=== PATIENT | female | born 1980 | race Caucasian/White ===

== ENCOUNTER → 2016-07-17 | Outpatient (REF) | payer BC | LOC: M SFHCWAGY 11:03 | PROVIDERS: ATTEND Nurse Practitioner Women's Health | DX: Z12.4 Encounter for screening for malignant neoplasm of cervix (principal) ==

== ENCOUNTER → 2016-10-08 | Outpatient (CLI) | payer BC ==
[2016-10-08 14:22] LABS: BASO % 0.2 % (0.0-1.0); EOS % 0.5 % (0.0-3.0); LARGE UNSTAINED CELL # 0.1 K/mm3 (0.0-0.4); LARGE UNSTAINED CELL % 1.2 % (0.0-4.0); LYMPH # 3.1 K/mm3 (1.5-4.5); LYMPH % 32.1 % (24.0-44.0); MEAN CORPUSCULAR HGB CONC 34.9 g/dl (32.0-36.5); MEAN CORPUSCULAR VOLUME 86.2 fl (80.0-96.0); MONO # 0.3 K/mm3 (0.0-0.8); MONO % 3.3 % (0.0-5.0); NEUTROPHILS # 5.8 K/mm3 (1.8-7.7); NEUTROPHILS % 62.7 % (36.0-66.0); PLATELET COUNT, AUTOMATED 324 k/mm3 (150-450); RED CELL DISTRIBUTION WIDTH 12.4 % (11.5-14.5); WHITE BLOOD COUNT 9.3 K/mm3 (4.0-10.0)
[2016-10-08 15:06] LABS: HBsAg Prenatal NEGATIVE (NEGATIVE)
== END ==
LOC: M LAB 13:31
PROVIDERS: ATTEND Advanced Practice Midwife
DX: Z34.81 Encounter for supervision of other normal pregnancy, first trimester (principal)

== ENCOUNTER → 2016-11-06 | Outpatient (REF) | payer BC | LOC: M LAB REF 13:04 | PROVIDERS: ATTEND Advanced Practice Midwife | DX: Z34.82 Encounter for supervision of other normal pregnancy, second trimester (principal) ==

== ENCOUNTER → 2016-12-05 | Outpatient (REF) | payer BC ==
[~2016-12-05] MED LIST: PRENTAB9 PO; PRIL20CA9 PO
== END ==
LOC: M LAB REF 13:05
PROVIDERS: ATTEND Obstetrics & Gynecology
DX: Z34.82 Encounter for supervision of other normal pregnancy, second trimester (principal)

== ENCOUNTER 2017-02-21 10:09 | Outpatient (CLI) | payer BC ==
[2017-02-21] VITALS (15 sets, daily range): BP systolic 131–178; BP diastolic 87–114
[~2017-02-21] VITALS: Ht 170.2 cm; Wt 84.8 kg
[2017-02-21] MEDS ORDERED: PRENTAB9 PO (10:36)
[2017-02-21] MEDS ORDERED: PRIL20CA9 PO (10:36)
[2017-02-21 13:22] LABS: ALT/SGPT 295 U/L (12-78); AST/SGOT 214 U/L (15-37); BILIRUBIN,TOTAL 1.1 MG/DL (0.2-1.0); CREATININE FOR GFR 0.52 MG/DL (0.55-1.02); GLOMERULAR FILTRATION RATE > 60.0 (>60); MEAN CORPUSCULAR HEMOGLOBIN 30.8 pg (27.0-33.0); RED CELL DISTRIBUTION WIDTH 13.7 % (11.5-14.5); URIC ACID 4.5 MG/DL (2.6-6.0); WHITE BLOOD COUNT 10.8 K/mm3 (4.0-10.0)
[2017-02-21] MEDS ORDERED: MAG Sulf (OBGYN) 20GM/500ML 20,000 MG in APPROPRIATE DILUENT 1 EA IV SCH (13:57)
[2017-02-21] MEDS ORDERED: LABETALOL HCL 100 MG/20 ML VIAL IV ONE (14:00)
[2017-02-21] MEDS ORDERED: CALCIUM GLUCONATE 1,000 MG in D5W MINI-BAG PLUS 100 ML IV PRN (14:00)
[2017-02-21] MEDS ORDERED: MAG Sulf (L&D) 4 GM/100 ML 4 GM in APPROPRIATE DILUENT 1 EA IV ONE (14:00)
[2017-02-21] MEDS ORDERED: BETAMETHASONE SOLUSPAN 6MG/ML INJ 5ML (J0702) IM SCH (14:00)
[2017-02-21 14:13] LABS: MEAN CORPUSCULAR HGB CONC 36.7 g/dl (32.0-36.5)
[2017-02-21] MEDS ORDERED: NIFEdipine 10 MG CAP PO ONE (15:15)
== END 2017-02-21 16:45 | disposition short-term general hospital (02) ==
LOC: M LDO 10:09
PROVIDERS: ATTEND Obstetrics & Gynecology
DX: O99.89 Other specified diseases and conditions complicating pregnancy, childbirth and the puerperium (principal); Z3A.28 28 weeks gestation of pregnancy; O14.23 HELLP syndrome (HELLP), third trimester; Z79.899 Other long term (current) drug therapy; Z88.0 Allergy status to penicillin; Z88.2 Allergy status to sulfonamides
CPT/HCPCS: 36415; 80307; 82247; 82565; 82570; 83615; 84156; 84450; 84460; 84550; 85027; 96365; 96372; 96375; J0702; J3475

== ENCOUNTER → 2018-03-04 | Outpatient (REF) | payer BC ==
[2018-03-06 14:39] LABS: HPV HYBRID CAPTURE II Positive (Negative)
== END ==
LOC: M LAB REF 13:27
DX: Z12.4 Encounter for screening for malignant neoplasm of cervix (principal)
CPT/HCPCS: G0123

== ENCOUNTER → 2018-04-07 | Outpatient (REF) | payer BC | LOC: M LAB REF 17:14 | DX: R87.612 Low grade squamous intraepithelial lesion on cytologic smear of cervix (LGSIL) (principal) | CPT/HCPCS: 88304 ==

== ENCOUNTER → 2018-12-09 | Outpatient (REF) | payer BC ==
[2018-12-12 00:07] LABS: HPV HYBRID CAPTURE II Negative (Negative)
== END ==
LOC: M LAB REF 18:15
PROVIDERS: ATTEND Specialist
DX: R87.612 Low grade squamous intraepithelial lesion on cytologic smear of cervix (LGSIL) (principal)
CPT/HCPCS: 87624; G0123

== ENCOUNTER → 2019-01-22 | Outpatient (CLI) | payer BC ==
--- NOTE | 2019-01-22 16:25 | REP ---
HISTORY: Chronic sinusitis. FINDINGS: Four views of the visualized paranasal sinuses were performed. There are no air-fluid levels. There is no lysis or sclerosis of the bony architecture surrounding the paranasal sinuses. There is no significant nasal septal deviation. IMPRESSION: Unremarkable paranasal sinuses. COMMENT: If evaluation of the paranasal sinus mucosa is of clinical concern then CT is more sensitive. Electronically Signed by Jim Benitez DO 01/22/2019 04:30 P
== END ==
LOC: M WUC 15:10
PROVIDERS: ATTEND Family Medicine
DX: J32.9 Chronic sinusitis, unspecified (principal)

== ENCOUNTER → 2019-02-11 | Outpatient (CLI) | payer BC ==
--- NOTE | 2019-02-11 16:51 | REP ---
Chest x-ray: Two views. History: Acute bronchitis. No comparison chest x-ray. Findings: There is a moderate dextroconvex thoracic curvature. The lungs are well inflated and clear. Pleural angles are sharp. Heart size is normal. Pulmonary vasculature is not increased. No other bony abnormality is seen. Impression: Thoracic scoliosis. Otherwise no active disease. Electronically Signed by Len Hernandez MD 02/11/2019 04:42 P
== END ==
LOC: M WUC 16:19
PROVIDERS: ATTEND Nurse Practitioner Family
DX: M41.34 Thoracogenic scoliosis, thoracic region (principal); J20.9 Acute bronchitis, unspecified

== ENCOUNTER → 2020-01-27 | Outpatient (REF) | payer BC ==
[2020-01-27 09:39] LABS: BASO # 0.1 10^3/uL (0.0-0.2); BASO % 0.6 % (0.0-1.0); EOS # 0.1 10^3/uL (0.0-0.5); EOS % 1.7 % (0.0-3.0); HEMATOCRIT 52.2 % (36.0-47.0); HEMOGLOBIN 17.5 g/dl (12.0-15.5); LYMPH # 3.3 10^3/uL (1.5-5.0); MEAN CORPUSCULAR HEMOGLOBIN 28.6 pg (27.0-33.0); MEAN CORPUSCULAR HGB CONC 33.5 g/dl (32.0-36.5); MEAN CORPUSCULAR VOLUME 85.4 fl (80.0-96.0); MONO # 0.4 10^3/uL (0.0-0.8); MONO % 5.7 % (0.0-5.0); NEUTROPHILS # 3.8 10^3/uL (1.5-8.5); NEUTROPHILS % 48.7 % (36.0-66.0); PLATELET COUNT, AUTOMATED 361 10^3/uL (150-450); RED BLOOD COUNT 6.11 10^6/uL (4.00-5.40); WHITE BLOOD COUNT 7.7 10^3/uL (4.0-10.0)
[2020-01-27 10:15] LABS: BLOOD UREA NITROGEN 13 MG/DL (7-18); CREATININE FOR GFR 0.92 MG/DL (0.55-1.30); GLUCOSE, FASTING 87 MG/DL (70-100)
[2020-01-27 10:16] LABS: ALBUMIN 4.6 GM/DL (3.2-5.2); ALT/SGPT 31 U/L (12-78); BILIRUBIN,TOTAL 0.7 MG/DL (0.2-1.0); CALCIUM LEVEL 9.4 MG/DL (8.5-10.1); CARBON DIOXIDE LEVEL 27 MEQ/L (21-32); CHLORIDE LEVEL 109 MEQ/L (98-107); CHOLESTEROL LEVEL 206 MG/DL (<200); CHOLESTEROL RISK RATIO 5.421 (<5); FREE T4 1.63 NG/DL (0.76-1.46); GLOMERULAR FILTRATION RATE > 60.0 (>60); HDL CHOLESTEROL 38 MG/DL (>40); LDL CHOLESTEROL 146 MG/DL (<100); NON-HDL-C 168 MG/DL; POTASSIUM SERUM 4.1 MEQ/L (3.5-5.1); SODIUM LEVEL 142 MEQ/L (136-145); TOTAL PROTEIN 7.7 GM/DL (6.4-8.2); TRIGLYCERIDES LEVEL 111 MG/DL (<150)
[2020-01-27 10:17] LABS: TOTAL 25(OH) VITAMIN D 30.5 NG/ML (30.0-100.0)
[2020-01-27 11:24] LABS: HEMOGLOBIN A1c 5.3 %
== END ==
LOC: M LAB REF 08:00
PROVIDERS: ATTEND Physician Assistant
DX: Z13.220 Encounter for screening for lipoid disorders (principal); Z13.29 Encounter for screening for other suspected endocrine disorder

== ENCOUNTER → 2020-02-03 | Outpatient (REF) | payer BC ==
[2020-02-03 19:04] LABS: HEMATOCRIT 47.8 % (36.0-47.0); HEMOGLOBIN 15.7 g/dl (12.0-15.5); MEAN CORPUSCULAR HEMOGLOBIN 28.8 pg (27.0-33.0); MEAN CORPUSCULAR HGB CONC 32.8 g/dl (32.0-36.5); MEAN CORPUSCULAR VOLUME 87.5 fl (80.0-96.0); PLATELET COUNT, AUTOMATED 363 10^3/uL (150-450); RED BLOOD COUNT 5.46 10^6/uL (4.00-5.40); WHITE BLOOD COUNT 8.2 10^3/uL (4.0-10.0)
== END ==
LOC: M LAB REF 17:40
PROVIDERS: ATTEND Physician Assistant
DX: D58.2 Other hemoglobinopathies (principal)

== ENCOUNTER → 2020-02-23 | Outpatient (CLI) | payer BC ==
--- NOTE | 2020-03-01 14:55 | REP ---
MAXILLOFACIAL CT STUDY WITHOUT CONTRAST HISTORY: Atypical facial pain. COMPARISON: Radiographs of the sinuses are from January 22, 2019. TECHNIQUE: Helical scanning is acquired. Three millimeter axial images were reformatted. Coronal multiplanar reformation images are generated. MAXILLOFACIAL CT FINDINGS: The left frontal sinus is clear. The right frontal is not developed. Ethmoid air cells are clear. Sphenoid aeration is normal. The mastoid sinuses are normal and symmetric. There are mucous retention cysts in each maxillary sinus, two on the right, the largest of which measures 2.2 cm in greatest diameter. There is a 2.2 cm mucous retention cyst in the left maxillary sinus inferiorly as well. No fluid is seen. The maxillary sinuses are otherwise clear. The left osteomeatal complex is widely patent. There is some mucosal thickening at the ostium of the right OMC. Nasal septum bows somewhat to the left without an observable beak. Nasal turbinate soft tissues are normal and symmetric. There is a small aerated maria c bullosa on each side. Nasal ethmoid recesses appear clear. No intraorbital abnormality is seen. The visualized intracranial structures are unremarkable. No bony destructive lesion. IMPRESSION: Mucous retention cysts are seen in each maxillary sinus. There is mucosa thickening of the ostium of the OMC on the right. Otherwise negative. MTDD
== END ==
LOC: M RAD 08:08
PROVIDERS: ATTEND Specialist
DX: J34.1 Cyst and mucocele of nose and nasal sinus (principal); G50.1 Atypical facial pain

== ENCOUNTER → 2020-12-23 | Outpatient (CLI) | payer BC | LOC: M WHC 08:47 | PROVIDERS: ATTEND Advanced Practice Midwife | DX: N63.20 Unspecified lump in the left breast, unspecified quadrant (principal); Z53.8 Procedure and treatment not carried out for other reasons ==

== ENCOUNTER → 2021-01-04 | Outpatient (CLI) | payer BC ==
--- NOTE | 2021-01-04 15:03 | REP ---
INDICATION: AJ DIAG MAMMO/N63.20 LEFT BREAST MASS. COMPARISON: None TECHNIQUE: Diagnostic bilateral digital mammography was carried out in the CC and MLO projections using both 2D and 3D modalities. Additionally, diagnostic digital magnified spot compression views of the left breast were obtained over the region of tenderness upper outer quadrant but near the 3 o'clock position. Ultrasonography over the clinical region of interest was also obtained using anatomical intelligence and shear wave elastography. FINDINGS: The breasts are symmetric in size and shape. Scattered dense heterogenous somewhat nodular fibroglandular elements are seen bilaterally to such a degree that the sensitivity of the mammogram in detecting cancer is decreased there are no masses. There is no internal architectural distortion. There are no suspicious calcifications. There is no skin thickening or nipple retraction. Diagnostic magnified spot compression views show no abnormalities. Diagnostic ultrasonography over the region of interest shows a solid hypoechoic 1.1 x 0.5 by 0.8 cm sized nodule. Shear wave elastography was performed on this showing I kPa values but less than 60. The Volpara volumetric breast density pattern is C. IMPRESSION: BIRADS/ACR category 4 left breast ultrasound findings as described above. Since the patient has clinical symptoms in this region ultrasound-guided biopsy is recommended. There is no mammographic correlate. This patient's Tyrer-Cuzick lifetime breast cancer risk assessment score is 9.4%. This mammogram was interpreted with the aid of an FDA-approved computer-aided detection system. The patient states she had a clinical breast exam in December 2020. The patient letter being requested is M4. RECOMMENDATION: As above <Electronically signed by Jim Benitez > 01/04/21 [id number]
== END ==
LOC: M WHC 12:54
PROVIDERS: ATTEND Advanced Practice Midwife
DX: N63.21 Unspecified lump in the left breast, upper outer quadrant (principal)
CPT/HCPCS: 76642; 77066; G0279

== ENCOUNTER → 2021-01-18 | Outpatient (CLI) | payer BC ==
[~2021-01-18] MED LIST changes: +LISI10TA22 PO; +MIRE1IUD IU
[2021-01-18 17:09] VITALS: BP 124/82
--- NOTE | 2021-01-24 20:23 | ROOPDOC ---
[facility] Report Of Operation Report of Operation DATE OF PROCEDURE: 01/18/21 DIAGNOSIS: left breast suspicious lesion PROCEDURE: ultrasound guided biopsy of the left breast suspicious lesion with clip placement SURGEON: Musa De Jesus BLOOD LOSS: minimal COMPLICATIONS: none Lidocaine 1% LOT [id number] Expiration 07/2024 Sodium Bicarbonate 8.4% LOT [id number] Expiration 07/2021 Hydromark clip LOT [id number] Expiration 09/2023 SHAPE: 3 Bx device: BARD [id number] x10 cm LOT [id number] Expiration 09/2023 Informed consent was obtained. The most common risk and possible complications including bleeding, hematoma, bruising, infection, injury to surrounding structures were explained to the patient and the patient expressed understanding. Patient was placed on the bed in the supine position. Appropriate time out was done stating patients name, date of , and the procedure to be performed. The left breast was prepped and draped in the usual fashion. The ultrasound was used to confirm the location of the lesion in the left breast at 4:00 4 centimeters from the nipple. Plain Lidocaine 1% and 8.4% sodium bicarbonate 10:1 mix was used to anesthetize the skin, the biopsy site and tissues along the anticipated biopsy tract. Small skin incision was made with blade number 11. BARD Marquee 14G cannula with introducer ([id number]) was inserted through the incision and advanced under the ultrasound guidance to position immediately adjacent to the lesion. Next, the introducer was removed and BARD Marquee 14G biopsy device was places in the cannula. Pre-biopsy imaging, and post-biopsy imaging were captured. Five good core biopsies were taken at various levels of the lesion. Specimen was placed in formaldehyde, labeled with appropriate biopsy site and patients name, and sent to pathology for evaluation. Next, the biopsy device was withdrawn and a clip introducer was inserted into the biopsy site via the cannula. SHAPE 3 Hydromark clip was deployed under sonographic guidance. Post-clip placement image was captured. Manual pressure over the biopsy cavity and tract was held after the clip introducer was withdrawn. No bleeding was noted upon removal of the pressure. Post-biopsy mammogram of the left breast was obtained and showed clip in expected position. Postprocedural dressing was placed. Patient tolerated procedure well. Discharge instructions were discussed with the patient and the patient expressed understanding. MUSA DE JESUS DO Jan 24, 2021 20:23
== END ==
LOC: M WHCPRO 06:39
PROVIDERS: ATTEND Surgery
DX: N60.22 Fibroadenosis of left breast (principal); N63.24 Unspecified lump in the left breast, lower inner quadrant

== ENCOUNTER → 2021-03-21 | Outpatient (REF) | payer BC, OTHER | LOC: M SFHCWAGY 18:15 | PROVIDERS: ATTEND Specialist | DX: Z01.419 Encounter for gynecological examination (general) (routine) without abnormal findings (principal) | CPT/HCPCS: 87624; G0123 ==

== ENCOUNTER → 2021-07-05 | Outpatient (REF) | payer BC, OTHER | LOC: M SFHCWAGY 11:25 | PROVIDERS: ATTEND Specialist | DX: N87.0 Mild cervical dysplasia (principal) ==

== ENCOUNTER → 2021-07-26 | Outpatient (REF) | payer BC, OTHER ==
[2021-07-26 09:02] LABS: BASO # 0.1 10^3/uL (0.0-0.2); BASO % 0.7 % (0.0-1.0); EOS # 0.2 10^3/uL (0.0-0.5); EOS % 1.8 % (0.0-3.0); HEMATOCRIT 47.8 % (36.0-47.0); LYMPH # 3.8 10^3/uL (1.5-5.0); LYMPH % 42.6 % (24.0-44.0); MEAN CORPUSCULAR HEMOGLOBIN 28.7 pg (27.0-33.0); MEAN CORPUSCULAR HGB CONC 33.5 g/dl (32.0-36.5); MEAN CORPUSCULAR VOLUME 85.8 fl (80.0-96.0); MONO # 0.5 10^3/uL (0.0-0.8); MONO % 5.6 % (2.0-8.0); NEUTROPHILS # 4.4 10^3/uL (1.5-8.5); NEUTROPHILS % 49.1 % (36.0-66.0); PLATELET COUNT, AUTOMATED 396 10^3/uL (150-450); RED BLOOD COUNT 5.57 10^6/uL (4.00-5.40)
[2021-07-26 09:23] LABS: ERYTHROCYTE SEDIMENTATION RATE 3 mm/hr (0-20)
[2021-07-26 10:21] LABS: ALBUMIN 4.3 GM/DL (3.2-5.2); ALT/SGPT 29 U/L (12-78); BILIRUBIN,TOTAL 0.7 MG/DL (0.2-1.0); BLOOD UREA NITROGEN 18 MG/DL (7-18); CALCIUM LEVEL 9.5 MG/DL (8.5-10.1); CARBON DIOXIDE LEVEL 20 MEQ/L (21-32); CHLORIDE LEVEL 109 MEQ/L (98-107); CHOLESTEROL LEVEL 178 MG/DL (<200); CHOLESTEROL RISK RATIO 4.139 (<5); CREATININE FOR GFR 0.93 MG/DL (0.55-1.30); GLOMERULAR FILTRATION RATE > 60.0 (>60); GLUCOSE, FASTING 98 MG/DL (70-100); HDL CHOLESTEROL 43 MG/DL (>40); LDL CHOLESTEROL 120 MG/DL (<100); NON-HDL-C 135 MG/DL; POTASSIUM SERUM 4.4 MEQ/L (3.5-5.1); RHEUMATOID FACTOR QUANT < 10.0 IU/ML (<15.0); SODIUM LEVEL 139 MEQ/L (136-145); TOTAL 25(OH) VITAMIN D 18.4 NG/ML (30.0-100.0); TOTAL PROTEIN 7.7 GM/DL (6.4-8.2); TRIGLYCERIDES LEVEL 75 MG/DL (<150)
[2021-07-29 10:17] LABS: ANA (HEP2) Negative (.); ANTI DS-DNA AB Negative (Negative); CYCLIC CITRULLINATED PEPTIDE 7 units (0-19)
== END ==
LOC: M LAB REF 08:45
PROVIDERS: ATTEND Physician Assistant
DX: E78.00 Pure hypercholesterolemia, unspecified (principal); Z82.61 Family history of arthritis

== ENCOUNTER → 2021-08-04 | Outpatient (CLI) | payer BC, OTHER | LOC: M WHC 15:28 | PROVIDERS: ATTEND Nurse Practitioner Women's Health | DX: D24.2 Benign neoplasm of left breast (principal) ==

== ENCOUNTER → 2021-08-28 | Outpatient (CLI) | payer BC, OTHER | LOC: M RAD 15:27 | PROVIDERS: ATTEND Internal Medicine Medical Oncology | DX: D75.1 Secondary polycythemia (principal) ==

== ENCOUNTER → 2023-04-08 | Outpatient (CLI) | payer OTHER ==
[~2023-04-08] MED LIST changes: +ATOR40TA75 PO; +ERGO500029 PO; +OMEP-173 PO; +SAXE1INJ SQ
[2023-04-08 12:26] LABS: BASO % 0.5 % (0.0-1.0); EOS # 0.1 10^3/uL (0.0-0.5); EOS % 1.8 % (0.0-3.0); HEMATOCRIT 44.7 % (36.0-47.0); HEMOGLOBIN 15.2 g/dl (12.0-15.5); LYMPH # 3.2 10^3/uL (1.5-5.0); LYMPH % 42.5 % (24.0-44.0); MEAN CORPUSCULAR HEMOGLOBIN 28.8 pg (27.0-33.0); MEAN CORPUSCULAR VOLUME 84.7 fl (80.0-96.0); MONO # 0.4 10^3/uL (0.0-0.8); MONO % 5.7 % (2.0-8.0); NEUTROPHILS # 3.7 10^3/uL (1.5-8.5); NEUTROPHILS % 49.2 % (36.0-66.0); PLATELET COUNT, AUTOMATED 375 10^3/uL (150-450); RED BLOOD COUNT 5.28 10^6/uL (4.00-5.40); WHITE BLOOD COUNT 7.4 10^3/uL (4.0-10.0)
[2023-04-08 13:05] LABS: ALKALINE PHOSPHATASE 66 U/L (46-116); ALT/SGPT 30 U/L (7.0-40); AST/SGOT 14 U/L (<34); BILIRUBIN,TOTAL 0.6 MG/DL (0.3-1.2); BLOOD UREA NITROGEN 12 MG/DL (9-23); CALCIUM LEVEL 9.2 MG/DL (8.5-10.1); CARBON DIOXIDE LEVEL 25 MMOL/L (20-31); CHLORIDE LEVEL 106 MMOL/L (98-107); CHOLESTEROL LEVEL 192 MG/DL (<200); CHOLESTEROL RISK RATIO 4.86 (<5); CREATININE FOR GFR 0.74 MG/DL (0.55-1.30); GLOMERULAR FILTRATION RATE > 60.0 (>58); GLUCOSE, FASTING 91 MG/DL (60-100); HDL CHOLESTEROL 39.5 MG/DL (>40); LDL CHOLESTEROL 134.7 MG/DL (<100); NON-HDL-C 152.5 MG/DL; POTASSIUM SERUM 4.1 MMOL/L (3.5-5.1); SODIUM LEVEL 137 MMOL/L (136-145); TOTAL 25(OH) VITAMIN D 24.9 NG/ML (20.0-100.0); TOTAL PROTEIN 6.6 G/DL (5.7-8.2); TRIGLYCERIDES LEVEL 89 MG/DL (<150)
[2023-04-08 13:12] LABS: HEMOGLOBIN A1c 5.2 % (4.0-6.0)
== END ==
LOC: M WUC 08:56
PROVIDERS: ATTEND Physician Assistant
DX: I10 Essential (primary) hypertension (principal); E78.00 Pure hypercholesterolemia, unspecified; E55.9 Vitamin D deficiency, unspecified

== ENCOUNTER → 2024-09-24 | Outpatient (REF) | payer OTHER ==
[2024-09-24 08:19] LABS: BASO # 0.1 10^3/uL (0.0-0.2); BASO % 0.6 % (0.0-1.0); EOS # 0.1 10^3/uL (0.0-0.5); EOS % 1.6 % (0.0-3.0); HEMATOCRIT 41.8 % (36.0-47.0); HEMOGLOBIN 13.9 g/dl (12.0-15.5); LYMPH # 3.4 10^3/uL (1.5-5.0); LYMPH % 39.6 % (24.0-44.0); MEAN CORPUSCULAR HEMOGLOBIN 28.4 pg (27.0-33.0); MEAN CORPUSCULAR HGB CONC 33.3 g/dl (32.0-36.5); MEAN CORPUSCULAR VOLUME 85.3 fl (80.0-96.0); MONO # 0.5 10^3/uL (0.0-0.8); MONO % 5.7 % (2.0-8.0); NEUTROPHILS # 4.5 10^3/uL (1.5-8.5); NEUTROPHILS % 52.3 % (36.0-66.0); PLATELET COUNT, AUTOMATED 376 10^3/uL (150-450); WHITE BLOOD COUNT 8.6 10^3/uL (4.0-10.0)
[2024-09-24 08:41] LABS: ALBUMIN 3.8 G/DL (3.2-5.2); ALKALINE PHOSPHATASE 74 U/L (35-104); ALT/SGPT 38 U/L (7.0-40); AST/SGOT 13 U/L (<34); BILIRUBIN,TOTAL 0.4 MG/DL (0.3-1.2); BLOOD UREA NITROGEN 15 MG/DL (9-23); CARBON DIOXIDE LEVEL 26 MMOL/L (20-31); CHLORIDE LEVEL 106 MMOL/L (98-107); CHOLESTEROL LEVEL 165 MG/DL (<200); CHOLESTEROL RISK RATIO 4.38 (<5); CREATININE FOR GFR 0.65 MG/DL (0.55-1.30); GLOMERULAR FILTRATION RATE > 90.0 (>58); GLUCOSE, FASTING 103 MG/DL (60-100); HDL CHOLESTEROL 37.6 MG/DL (>40); LDL CHOLESTEROL 107.2 MG/DL (<100); NON-HDL-C 127.4 MG/DL; POTASSIUM SERUM 4.5 MMOL/L (3.5-5.1); SODIUM LEVEL 141 MMOL/L (136-145); TOTAL PROTEIN 6.3 G/DL (5.7-8.2); TRIGLYCERIDES LEVEL 101 MG/DL (<150)
[2024-09-24 08:42] LABS: THYROID STIMULATING HORMONE 2.128 uIU/ML (0.55-4.78)
[2024-09-24 08:43] LABS: FREE T4 1.22 NG/DL (0.89-1.76); TOTAL 25(OH) VITAMIN D 38.7 NG/ML (20.0-100.0)
== END ==
LOC: M LAB REF 07:53
PROVIDERS: ATTEND Physician Assistant
DX: I10 Essential (primary) hypertension (principal); E55.9 Vitamin D deficiency, unspecified; E78.00 Pure hypercholesterolemia, unspecified

== ENCOUNTER → 2024-09-24 | Outpatient (CLI) | payer OTHER | LOC: M CARPUL 09:29 | PROVIDERS: ATTEND Physician Assistant | DX: Z82.49 Family history of ischemic heart disease and other diseases of the circulatory system (principal) ==

== ENCOUNTER 2024-12-23 07:39 | Outpatient (RCR) | payer OTHER | END 2024-12-31 | LOC: M PT 07:39 | PROVIDERS: ATTEND Obstetrics & Gynecology | DX: R32 Unspecified urinary incontinence (principal); R10.32 Left lower quadrant pain ==

== ENCOUNTER 2025-01-11 09:15 | Outpatient (RCR) | payer OTHER | END 2025-01-31 | LOC: M PT 09:15 | PROVIDERS: ATTEND Obstetrics & Gynecology | DX: R10.32 Left lower quadrant pain (principal); R32 Unspecified urinary incontinence ==

== ENCOUNTER → 2025-04-06 | Outpatient (RCR) | LOC: M EMPSSV 03-29 10:04 | PROVIDERS: ATTEND Family Medicine | DX: Z20.828 Contact with and (suspected) exposure to other viral communicable diseases (principal) ==